=== PATIENT | female | born 1950 | race Two or more races ===

== ENCOUNTER 2022-01-28 08:15 | Inpatient (IN) | payer OTHER ==
[~2022-01-28] VITALS: Ht 157.5 cm; Wt 68.0 kg
[2022-01-28] MEDS ORDERED: GLIPIZIDE XL5 MG PO (11:12)
[2022-01-28] MEDS ORDERED: FOLIC ACID PO (11:13)
[2022-01-28] MEDS ORDERED: AVAPRO75 MG PO (11:13)
[2022-01-28] MEDS ORDERED: SIMVAST PO (11:14)
[2022-01-28] MEDS ORDERED: AMLODI PO (11:14)
[2022-01-28] MEDS ORDERED: BAYER THERAPY325 MG PO (11:15)
[2022-01-28] MEDS ORDERED: ALENDRONATE SOD70 MG PO (11:15)
[2022-02-04] MEDS ORDERED: ALEVE220 M1 PO (08:04)
[2022-02-04] MEDS ORDERED: PERCOCET 5-3251 EACH PO (08:04)
[2022-02-04] MEDS ORDERED: DUI500 PO (08:04)
== END 2022-02-04 10:48 | disposition home or self-care (01) | DRG 483 ==
LOC: O/R 02-03 06:28 → OB/GYN 02-03 06:28 → SURH 02-03 08:15 → OB/GYN 02-04 07:00
PROVIDERS: ADMIT Orthopaedic Surgery; ATTEND Orthopaedic Surgery
PROC: 0LS30ZZ Reposition Right Upper Arm Tendon, Open Approach (ICD-10-PCS; 2022-02-03)
PROC: 0PUC0JZ Supplement Right Humeral Head with Synthetic Substitute, Open Approach (ICD-10-PCS; 2022-02-03)
PROC: 0RRJ0JZ Replacement of Right Shoulder Joint with Synthetic Substitute, Open Approach (ICD-10-PCS; principal; 2022-02-03 16:45)
DX: M19.011 Primary osteoarthritis, right shoulder (principal); Z20.822 Contact with and (suspected) exposure to COVID-19; M89.8X1 Other specified disorders of bone, shoulder